=== PATIENT | male | born 1975 | race Caucasian/White ===

== ENCOUNTER 2020-03-01 21:02 | Emergency (ER) | payer OTHER ==
[2020-03-01 21:25] VITALS: BP 131/89; PULSE 82; TEMP 98.5; BMI 34.0
[2020-03-01] MEDS ORDERED: LIDOCAINE 5% TOPICAL PATCH TP ONE (21:35)
[2020-03-01] MEDS ORDERED: KETOROLAC TROMETHAMINE 30 MG/1 ML VIAL IM ONE (21:35)
--- NOTE | 2020-03-01 21:40 | PDOC ---
History of Present Illness - General Chief Complaint: Back Pain Stated Complaint: BACK PAIN Time Seen by Provider: 03/01/20 21:31 History Source: Patient Exam Limitations: No Limitations - History of Present Illness Initial Comments: 03/01/20 21:36 44-year-old male past medical history hypertension and RCC (status post left nephrectomy) presenting to the ED with 3 days of right-sided back pain radiating down his right leg. Patient denies saddle esthesia bowel or bladder incontinence/retention. 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 Patient has been taking Motrin and Tylenol with relief. Pt otherwise denies: fevers, chills, syncope, lightheadedness, dizziness, headaches, neck pain, chest pain, shortness of breath, palpitations, abdominal pain, nausea, vomiting, diarrhea, constipation. Past History - Medical History Allergies/Adverse Reactions: Allergies Allergy/AdvReac Type Severity Reaction Status Date / Time No Known Allergies Allergy Verified 04/28/15 11:17 Home Medications: Ambulatory Orders Azithromycin [Zithromax Z-NOEMI (5 DAYS)] 250 mg PO DAILY #6 tablet 04/28/15 Cyclobenzaprine HCl [Flexeril 10 mg] 10 mg PO BID PRN #20 tablet 03/01/20 Ibuprofen [Ibu] 600 mg PO TID #30 tablet 03/01/20 Lidocaine 5% Patch [Lidoderm -] 1 patch TP DAILY #7 patch 03/01/20 Cancer: Yes (Rt kiney removed.) COPD: No - Psycho-Social/Smoking History Smoking History: Never smoked - Substance Abuse Hx (Audit-C & DAST Scrn) How often the patient has a drink containing alcohol: Monthly or less Score: In Men: 4 or > Positive; In Women: 3 or > Positive: 1 Screen Result (Pos requires Nsg. Audit-10AR): Negative In the last yr the pt used illegal drug/Rx for NonMed reason: No Score: Yes response is considered Positive: 0 Screen Result (Positive result requires Nsg. DAST-10): Negative *Physical Exam - Vital Signs Last Vital Signs Temp Pulse Resp BP Pulse Ox 98.5 F 82 19 131/89 100 03/01/20 21:16 03/01/20 21:16 03/01/20 21:16 03/01/20 21:16 03/01/20 21:16 - Physical Exam 03/01/20 21:37 Gen: AAOx 3, no acute distress, comfortable, no signs of respiratory distress HENT: atraumatic, normocephalic with no laceration or contusion. Nasal mucosa without erythema. Oropharynx without erythema or exudates. Mucous membranes moist. EYES: PERRL, EOM intact, conjunctiva pink NECK: supple; trachea midline; no JVD, no lymphadenopathy, or thyromegaly CV: RRR no murmurs, gallops, or rubs. CHEST: CTA b/l no wheezing, rales or rhonchi ABD: +BS/ND. no TTP; soft, no rebound, no guarding EXTREMITY: no cyanosis or erythema. 2+ dorsalis pedis, posterior tibial, and radial pulse. No pedal edema; no calf swelling or tenderness SKIN: no rash, warm and dry, no diaphoresis HEME: no purpura or ecchymosis NEURO: normal speech, CN II-XII intact, sensation intact, normal gait, no cerebellar deficits MS: 5/5 strength in all extremities, FROM intact in all extremities. Back: ttp over lumbar paravertebrals without midline ttp Medical Decision Making - Medical Decision Making 03/01/20 21:37 44-year-old male with acute back pain Vital signs stable Will administer Toradol and lidocaine patch Will reassess Patient reports improvement in pain with meds Patient prescribed ibuprofen and Flexeril Patient instructed to follow-up with orthopedics Drowsy: Patient was instructed not to drive or operate heavy machinery while taking Flexeril. The patient was also instructed not to take the medication with any other sedating medications and not to drink alcohol while taking the medication. Pt appears well and is safe and stable for discharge with strict return precautions including signs and symptoms requring immediate return to the ED Supportive care instructions explained and given to pt. Reasons to return emergently to ER explained and given. Importance of follow up with PMD and other specialists as indicated stressed to pt. Pt verbalized understanding of instructions. Pt to follow up with PMD in 2 days. Discharge - Discharge Information Problems reviewed: Yes Clinical Impression/Diagnosis: Back pain Qualifiers: Back pain location: low back pain Chronicity: acute Back pain laterality: right Sciatica presence: with sciatica Sciatica laterality: sciatica of right side Qualified Code(s): M54.41 - Lumbago with sciatica, right side Condition: Stable Disposition: HOME - Additional Discharge Information Prescriptions: Cyclobenzaprine HCl [Flexeril 10 mg] 10 mg PO BID PRN #20 tablet PRN Reason: Back Pain Ibuprofen [Ibu] 600 mg PO TID #30 tablet Lidocaine 5% Patch [Lidoderm -] 1 patch TP DAILY #7 patch - Follow up/Referral Referrals: Shair Rosenthal MD [Primary Care Provider] - Sree John MD [Staff Physician] - - Patient Discharge Instructions Patient Printed Discharge Instructions: DI for Back Pain With Sciatica - Post Discharge Activity Work/Back to School Note: Back to Work
[2020-03-01] MEDS ORDERED: LIDOCAINE 5% TOPICAL PATCH ONE (21:56)
[2020-03-01] MEDS ORDERED: KETOROLAC TROMETHAMINE 30 MG/1 ML VIAL ONE (21:57)
[2020-03-01] MEDS ORDERED: LIDOCAINE PATCH REMOVAL MC SCH (22:00)
== END 2020-03-01 22:29 | disposition home or self-care (01) ==
LOC: JER 21:02 → JERFT 21:02
PROC: 3E0233Z Introduction of Anti-inflammatory into Muscle, Percutaneous Approach (ICD-10-PCS; principal; 2020-03-01)
DX: M54.41 Lumbago with sciatica, right side (principal)
CPT/HCPCS: 99284-25